=== PATIENT | female | born 2000 | race Caucasian/White ===

== ENCOUNTER 2020-07-31 22:42 | Emergency (ER) | payer OTHER, SELFPAY ==
[2020-02-27 14:39] VITALS: BMI 27.8
[2020-07-31 22:43] VITALS: BP 155/89; PULSE 107; RESP 19; TEMP 37.2; O2SAT 98; BMI 28.2
--- NOTE | 2020-07-31 22:54 | ED.VIS.GEN ---
History of Present Illness Chief Complaint: Flank Pain Informant: Patient Narrative: 20-year-old female with no significant past medical history presents with sore throat and abdominal pain. States that she woke up this morning with a sore throat. States it is scratchy in nature. No relieving or worsening factors. No difficulty swallowing. Denies any fever, chills, headache, neck pain, cough. Patient states that she also began having abdominal pain in her right lower quadrant approximately 8 to 12 hours ago. States it is intermittent in nature and sharp. States that she has had kidney stones before in the past but this does feel somewhat different. Denies any nausea or vomiting. Denies any urinary symptoms. Patient states that she is on control so she does not have a regular menstrual cycle but is currently having vaginal bleeding. States it is not profuse or heavy. Denies any dizziness or lightheadedness. Denies vaginal discharge. Past Medical History - Allergies and Home Meds Allergies/Adverse Reactions: Allergies No Known Allergies Allergy (Verified 07/31/20 22:43) Primary Care Physician: Rebeka Bravo PA [Primary Care Provider] - Past Medical History: None Lives: With Family Smoking Status: Never smoker Alcohol: None Drugs: None Review of Systems General: Denies: Chills, Fever, Sweats Eyes: Denies: Visual changes - bilaterally, Diplopia ENT: Reports: Sore throat. Denies: Rhinorrhea Cardiovascular: Denies: Chest pain, Palpitations Respiratory: Denies: Dyspnea, Cough, Dyspnea on exertion Gastrointestinal: Reports: Abdominal pain. Denies: Nausea, Vomiting, Diarrhea, Melena, Hematochezia Genitourinary: Denies: Dysuria, Hematuria, Frequency Musculoskeletal: Denies: Back pain, Extremity Pain Skin: Denies: Rash, Wounds Neurological: Denies: Headache, Weakness, Numbness Physical Exam Vital Signs/Narrative: Vital Signs Temp Pulse Resp BP Pulse Ox 07/31/20 22:43 98.9 F 107 H 19 H 155/89 H 98 Inital Vital Signs reviewed: Yes General: Well nourished, Well developed, No Acute Distress Head: Normocephalic, Atraumatic Eyes: Perrl, EOMI ENT: Moist mucous membranes, No rhinorrhea Neck: Supple, Nontender Cardiovascular: Regular rate, Regular rhythm, No murmurs Respiratory: No distress, CTA bilaterally, Chest nontender Abdomen: Soft, Nondistended, Normal bowel sounds, - - TTP in the RLQ. No rebound. Back: Nontender, Normal Inspection Extremities: Nontender, No edema Skin: Normal color, No rash Neurological: Alert, Oriented x3, Cranial nerves II-XII grossly intact, Normal Strength, Normal Sensation Psychological: Normal affect, Normal Mood Diagnostic/Tx/Re-eval Clinical Impression(s) from Imaging Studies Abdomen/Pelvis CT 07/31/20 23:48 IMPRESSION: Negative enhanced CT of the abdomen and pelvis for acute abnormality. No ureteral calculus or hydronephrosis. Electronically Signed: Cody Cotton, at 0:08 EDT Tel , Service support , Laboratory Data 07/31/20 07/31/20 07/31/20 23:04 23:10 23:10 WBC 9.6 RBC 4.69 Hgb 13.0 Hct 39.8 MCV 84.9 MCH 27.7 MCHC 32.7 RDW Std Deviation 37.4 RDW Coeff of Vera 12.1 Plt Count 322 MPV 9.4 Immature Gran % (Auto) 0.300 Neut % (Auto) 68.5 Lymph % (Auto) 21.8 Cedar % (Auto) 8.3 Eos % (Auto) 0.6 Baso % (Auto) 0.5 Absolute Neuts (auto) 6.6 Absolute Lymphs (auto) 2.08 Nucleated RBC % 0 Sodium 136 Potassium 3.6 Chloride 104 Carbon Dioxide 23.0 Anion Gap 9 BUN 9 Creatinine 0.94 Estim Creat Clear Calc 99.77 Est GFR (MDRD) Af Amer 97 Est GFR (MDRD) Non-Af 81 BUN/Creatinine Ratio 9.6 L Glucose 92 Calcium 9.3 Total Bilirubin 0.40 AST 51 H ALT 89 H Alkaline Phosphatase 77 Total Protein 8.0 Albumin 3.5 Globulin 4.5 H Albumin/Globulin Ratio 0.8 L Urine Color Yellow Urine Clarity Clear Urine pH 6.5 Ur Specific Eunice 1.005 Urine Protein Negative Urine Glucose (UA) Normal Urine Ketones Negative Urine Occult Blood 25 H Urine Nitrite Negative Urine Bilirubin Negative Urine Urobilinogen Normal Ur Leukocyte Esterase Negative Urine RBC 0 SEEN Urine WBC 0 SEEN Ur Squamous Epith Cells 0-5 SEEN Urine Bacteria 0 SEEN Urine Mucus 0 SEEN Urine Test Negative Monoscreen 07/31/20 23:10 WBC RBC Hgb Hct MCV MCH MCHC RDW Std Deviation RDW Coeff of Vera Plt Count MPV Immature Gran % (Auto) Neut % (Auto) Lymph % (Auto) Cedar % (Auto) Eos % (Auto) Baso % (Auto) Absolute Neuts (auto) Absolute Lymphs (auto) Nucleated RBC % Sodium Potassium Chloride Carbon Dioxide Anion Gap BUN Creatinine Estim Creat Clear Calc Est GFR (MDRD) Af Amer Est GFR (MDRD) Non-Af BUN/Creatinine Ratio Glucose Calcium Total Bilirubin AST ALT Alkaline Phosphatase Total Protein Albumin Globulin Albumin/Globulin Ratio Urine Color Urine Clarity Urine pH Ur Specific Eunice Urine Protein Urine Glucose (UA) Urine Ketones Urine Occult Blood Urine Nitrite Urine Bilirubin Urine Urobilinogen Ur Leukocyte Esterase Urine RBC Urine WBC Ur Squamous Epith Cells Urine Bacteria Urine Mucus Urine Test Monoscreen Negative - Medical Decision Making Appears well nontoxic. Vital signs within normal limits. Tenderness to palpation in the right lower quadrant prompting lab work as well as CT. No evidence of appendicitis. Patient does have large amount of stool in the right lower quadrant. Will be given MiraLAX for home. Nonspecific transaminitis. Monospot negative. Rapid strep negative. I did discuss with the patient that her Monospot may be falsely negative given the recent onset of her symptoms. No evidence of meningitis. Patient will be advised to return for new or worsening symptoms. Advised to have liver enzymes rechecked within the next week. Patient agreeable and discharged home in stable condition. Impression: 1. Abdominal pain 2. Pharyngitis 3. Transaminitis ED Disposition - Plan for ED Patient: Disposition: Home or Assisted Living Instructions: Abdominal Pain, Self-Care for Sore Throats Prescriptions: Polyethylene Glycol 3350 [Miralax] 17 gm PO DAILY #85 g Prescription Printed Referrals: Rebeka Bravo PA [Primary Care Provider] -
[2020-07-31] MEDS: 0.9% Normal Saline 1,000 ML 1000 ML IV (23:09)
[2020-07-31] MEDS: Ketorolac 15 MG/ML Vial IV (23:10)
[2020-07-31 23:12] VITALS: PULSE 85; RESP 16; O2SAT 97
[2020-07-31 23:20] LABS: Bacteria 0 SEEN /hpf (None Seen); Mucous, Urine 0 SEEN /hpf (<or=2+); Red Blood Cells-Urine 0 SEEN /hpf (0-5); White Blood Cells 0 SEEN /hpf (0-5)
[2020-07-31 23:23] LABS: Color, Urine Yellow (Yellow); Glucose, Dipstick Normal (Normal); Ketone-Dipstick Negative (Negative); Leukocyte Esterase-Dipstick Negative /ul (Negative); Nitrite-Dipstick Negative (Negative); Occult Blood-Urine 25 /ul (Negative); Protein-Dipstick Negative (Negative); Specific Gravity, Urine 1.005 (1.002-1.030); Urine Bilirubin Dipstick Negative (Negative); Urine Clarity Clear (Clear); Urine Urobilinogen Normal (Normal); Urine pH 6.5 (5.0 - 8.0)
[2020-07-31 23:23] LABS: Absolute Lymphocyte Count 2.08 X10^3/uL (0.83-4.51); Absolute Neutrophil Count 6.6 X10^3/uL (2.0-7.7); Basophil# 0.05 X10^3/uL; Basophil% 0.5 % (0-1); Eosinophil# 0.06 X10^3/uL; Eosinophils% 0.6 % (0-5); Hematocrit 39.8 % (37-47); Lymphocyte # 2.08 X10^3/ul (4.0); Lymphocyte % 21.8 % (19-41); Mean Corp Hgb Conc 32.7 g/dL (32-36); Mean Corpuscular Hgb 27.7 pg (27.0-32.0); Mean Corpuscular Volume 84.9 fL (81-99); Mean Platelet Vol. 9.4 fl (6.2-12.0); Monocyte# 0.79 X10^3/uL; Monocyte% 8.3 % (0-10); NRBC Flagged by Analyzer 0 % (0-5); Neutrophil # 6.55 X10^3/uL (2.7-7.7); Neutrophil % 68.5 % (47-70); Platelet Count 322 K/mm3 (150-450); RBC Distribution Width CV 12.1 % (11.6-14.6); RBC Distribution Width SD 37.4 fl (35.1-43.9); Red Blood Count 4.69 M/mm3 (4.2-5.4); White Blood Count 9.6 K/mm3 (4.4-11.0)
[2020-07-31 23:24] LABS: Internal QC Validated? YES +Cl - CLEAR BKGD; Pregnancy, Urine Negative Negative
[2020-07-31 23:33] LABS: Squamous Epithelial Cells - UA 0-5 SEEN /hpf (5-10)
[2020-07-31 23:38] LABS: ALB/GLOB Ratio 0.8 RATIO (0.9-2.4); AST(SGOT) 51 U/L (15-37); Alanine Aminotransfer ALT/SGPT 89 U/L (13-56); Albumin, Serum 3.5 g/dL (3.2-5.0); Alkaline Phosphatase 77 U/L (45-117); Anion Gap 9 (5-15); BUN 9 mg/dL (7-18); BUN/Creat Ratio 9.6 RATIO (10-20); Calcium,Total 9.3 mg/dL (8.5-10.1); Chloride 104 mmol/L (98-107); Creatinine, Serum 0.94 mg/dL (0.55-1.02); EST Glomerular Filtration Rate 81 mL/min (>60); Est Glom Filt Rate - Afr Amer 97 mL/min (>60); Estimated Creatinine Clearance 99.77 ml/min; Globulin 4.5 g/dL (2.2-4.2); Glucose 92 mg/dL (74-106); Potassium 3.6 mmol/L (3.5-5.1); Sodium Level 136 mmol/L (136-145)
--- NOTE | 2020-07-31 23:48 | CT_ITS ---
STUDY: CT ABDOMEN AND PELVIS WITH CONTRAST REASON FOR EXAM: Female, 20 years old. RIGHT FLANK PAIN HX OF KIDNEY STONES RADIATION DOSAGE (If Supplied By Facility): CTDIvol = ( 21.52 ) mGy, DLP = ( 867.27 ) mGycm TECHNIQUE: Transaxial images were obtained from the dome of the diaphragm to the symphysis pubis without oral contrast. IV 100mL Isovue-300 was administered. Sagittal and coronal images were reconstructed. Individualized dose optimization techniques were used for this CT. COMPARISON: None. FINDINGS: The visualized lung bases are unremarkable. The visualized portions of the heart are within normal limits. Normal liver. Normal gallbladder and extrahepatic biliary system. Normal spleen. Normal pancreas. Normal bilateral adrenal glands. Normal right kidney. Normal left kidney. Normal visualized stomach. Normal small intestine. Normal colon. Moderate retained stool throughout the colon. Correlate for constipation. The appendix is visualized and appears normal. Normal abdominal aorta. Normal inferior vena cava. Normal retroperitoneum. Normal urinary bladder. 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 Normal abdominal wall. Normal osseous structures. CT/Abdomen/Pelvis W IV Cont ONLY IMPRESSION: Negative enhanced CT of the abdomen and pelvis for acute abnormality. No ureteral calculus or hydronephrosis. Electronically Signed: Cody Cotton, at 0:08 EDT Tel , Service support ,
[2020-08-01 00:13] LABS: Internal QC Validated? YES +Cl - CLEAR BKGD; Monotest Negative (Negative)
[2020-08-01] MEDS: dexAMETHasone 10 MG/ML Vial PO.IVFORM (01:53)
[2020-08-01 01:55] VITALS: RESP 16
== END 2020-08-01 01:56 | disposition home or self-care (01) ==
PROVIDERS: Emergency Provider Emergency Medicine; PCP Physician Assistant
DX: R10.31 Right lower quadrant pain (principal); J02.9 Acute pharyngitis, unspecified; R74.01 Elevation of levels of liver transaminase levels
CPT/HCPCS: 74177; 80053; 81001; 81025; 85025; 86308; 87880; 96361; 96374; 99284; J7030; Q9967